=== PATIENT | female | born 1940 | race Two or more races ===

== ENCOUNTER 2021-11-27 17:15 | Inpatient (IN) | payer OTHER ==
--- NOTE | 2021-11-27 17:40 | NUR ---
PATIENT IS RECIEVED ALONGSIDE DAUGHTER WHO SAYS THAT HE RMOTHER FELL FROM THE BED LAST NIGHT AND HAS A HEMOTOMA ON HER LEFT HIP.
--- NOTE | 2021-11-27 19:03 | NUR ---
PTE EVALUADO POR . PENDIENTE SHALONDA X
--- NOTE | 2021-11-27 20:25 | NUR ---
PATRICIA MARINA JULIETTE MUESTRAS DE [facility] ORDEN MEDICA Y BAJO MEDIDAS ASEPTICAS. PATRICIA QUEZADA COLOCA WONG. PTE EN GIL #10 PENDIENTE A RESULTADOS.
--- NOTE | 2021-11-27 20:48 | NUR ---
SE ORIENTA A FAMILIAR SOBRE TRATAMIENTO A SEGUIR, EL REFIERE ENTENDER. SE REALIZA LAVADO PERIANAL, SE OBSERVA AREA SACRAL CON PIEL ABIERTA SECA AL MOMENTO. SE INSERTA WONG #16 UTILIZANDO MEDIDAS ASEPTICAS Y ESTERIL. PENDIENTE CONSULTA CON
[2021-11-30] MEDS ORDERED: DONEPEZIL HCL5 MG (15:48)
[2021-11-30] MEDS ORDERED: SYNTHROID50 MCG PO (15:48)
[2021-11-30] MEDS ORDERED: ESCITALOPRAM OX10 MG (15:48)
[2021-11-30] MEDS ORDERED: CLOPIDOGREL BIS75 MG (15:48)
[2021-11-30] MEDS ORDERED: MEMANTINE HCL5 MG (15:48)
[2021-11-30] MEDS ORDERED: SIMVASTATIN20 MG (15:48)
[2021-12-18] MEDS ORDERED: ARICEPT5 MG PO (12:03)
== END 2021-12-19 15:36 | disposition home or self-care (01) | DRG 535 ==
LOC: ER 17:15 → SURG 11-28 03:54
PROVIDERS: ADMIT Orthopaedic Surgery; ATTEND Orthopaedic Surgery
PROC: 30233N1 Transfusion of Nonautologous Red Blood Cells into Peripheral Vein, Percutaneous Approach (ICD-10-PCS; 2021-11-29)
PROC: 0DH67UZ Insertion of Feeding Device into Stomach, Via Natural or Artificial Opening (ICD-10-PCS; 2021-11-29)
PROC: 3E0G76Z Introduction of Nutritional Substance into Upper GI, Via Natural or Artificial Opening (ICD-10-PCS; 2021-11-29)
PROC: BW28ZZZ Computerized Tomography (CT Scan) of Head (ICD-10-PCS; principal; 2021-12-02)
PROC: 02HV33Z Insertion of Infusion Device into Superior Vena Cava, Percutaneous Approach (ICD-10-PCS; 2021-12-06)
PROC: 4A12X4Z Monitoring of Cardiac Electrical Activity, External Approach (ICD-10-PCS; 2021-12-06)
PROC: 3E0F7GC Introduction of Other Therapeutic Substance into Respiratory Tract, Via Natural or Artificial Opening (ICD-10-PCS; 2021-12-12)
DX: S72.011A Unspecified intracapsular fracture of right femur, initial encounter for closed fracture (principal); B37.1 Pulmonary candidiasis; J69.0 Pneumonitis due to inhalation of food and vomit; J15.1 Pneumonia due to Pseudomonas; T17.800A Unspecified foreign body in other parts of respiratory tract causing asphyxiation, initial encounter; T82.7XXA Infection and inflammatory reaction due to other cardiac and vascular devices, implants and grafts, initial encounter; Z53.09 Procedure and treatment not carried out because of other contraindication; B95.2 Enterococcus as the cause of diseases classified elsewhere; Z74.01 Bed confinement status; B95.7 Other staphylococcus as the cause of diseases classified elsewhere; G30.9 Alzheimer's disease, unspecified; D50.0 Iron deficiency anemia secondary to blood loss (chronic); F02.80 Dementia in other diseases classified elsewhere, unspecified severity, without behavioral disturbance, psychotic disturbance, mood disturbance, and anxiety; E03.8 Other specified hypothyroidism; E87.6 Hypokalemia; W18.39XA Other fall on same level, initial encounter; Y92.098 Other place in other non-institutional residence as the place of occurrence of the external cause